=== PATIENT | female | born 1965 | race American Indian/Alaskan Native ===

== ENCOUNTER 2016-12-30 09:58 | Emergency (ER) | payer MEDICAID ==
[2016-12-30] MEDS ORDERED: MOTRIN PO ONE (11:11)
--- NOTE | 2016-12-30 11:48 | Emergency Department Report ---
Chief Complaint: Fever Stated Complaint: FLU-LIKE SYMPTOMS Time Seen by Provider: 12/30/16 11:38 - HPI History of Present Illness: Patient is a 51-year-old female with a history of HIV who presents to ED complaining of a quite mucus productive cough since Wednesday. Patient states she was recently in [place] for about 2 weeks early visiting her daughter. Patient's is to Wednesday she got back in town and has been having fevers/chills/ bodyaches since then. Patient states she had not vomited since this morning. She states she takes medications for blood pressure and has not been able to take a blood pressure medication today. Patient states she takes amlodipine 5mg this and appeared 20mg. Patient states she is taking [id number] flu symptom relief with no relief. Patient denies blurred vision/headache/diarrhea/constipation and shortness of breath/chest pain - ROS Review of Systems: As noted in HPI - Exam Vital Signs: Vital Signs 12/30/16 12/30/16 11:02 11:14 Temperature 102.3 F H Pulse Rate 114 H Respiratory 24 22 Rate Blood Pressure 180/117 O2 Sat by Pulse 99 Oximetry Physical Exam: GENERAL: Alert and oriented x3, no apparent distress, Normal Gait, atraumatic. MOUTH:Mouth is well hydrated and without lesions. Tonsils nonerythematous or swollen, Uvula midline, Tongue not elevated. Mucous membranes are moist. Posterior pharynx clear, no exudate or lesions. Patent airways. NECK: Supple. Non edematous, No carotid bruits. No lymphadenopathy or thyromegaly. LUNGS: Symetrical with respiration, No wheezing, no rales or crackles, CTAB. HEART: S1, S2 present, regular rate and rhythm without murmur, no rubs, no gallops. ABDOMEN: No organomegaly was noted,Positive bowel sounds, soft, and non- distended. . Nontender to palpation on all Quadrants, NO CVA tenderness. SKIN: Warm and dry, No lesions, No ulceration or induration present. MSE screening note: Focused history and physical exam performed. Due to findings the following was ordered: ED Medical Decision Making - Medical Decision Making 51-year-old female presents with URI symptoms and fever. Motrin given in triage area. Labs ordered. Chest x-ray ordered. Patient awaiting to be seen by a physician. His labs are normal and x-ray normal and fever reducing this patient can be seen in fast track ED Disposition for MSE Condition: Stable
[2016-12-30 12:01] LABS: Basophils % (Auto) 0.1 % (0.0-1.8); Hematocrit 33.7 % (30.3-42.9); Hemoglobin 11.1 gm/dl (10.1-14.3); Mean Corpuscular HGB Conc 33 % (30-34); Mean Corpuscular Hemoglobin 27 pg (28-32); Mean Corpuscular Volume 83 fl (79-97); Platelet Count 156 K/mm3 (140-440); Red Blood Count 4.08 M/mm3 (3.65-5.03); Red Cell Distribution Width 14.6 % (13.2-15.2); White Blood Count 6.1 K/mm3 (4.5-11.0)
[2016-12-30 12:24] LABS: Albumin 3.8 g/dL (3.9-5); Albumin/Globulin Ratio 0.7 %; Alkaline Phosphatase 67 units/L (35-129); Anion Gap 17 mmol/L; BUN/Creatinine Ratio 11.25; Bilirubin,Total 0.4 mg/dL (0.1-1.2); Blood Urea Nitrogen 9 mg/dL (7-17); Calcium 8.6 mg/dL (8.4-10.2); Carbon Dioxide 22 mmol/L (22-30); Glucose 101 mg/dL (65-100); Potassium 3.7 mmol/L (3.6-5.0); Sodium 137 mmol/L (137-145); Total Protein 9.4 g/dL (6.3-8.2)
[2016-12-30 12:29] LABS: Alanine Aminotransferase < 5 units/L (7-56)
[2016-12-30 13:38] LABS: Bilirubin,Urine NEG (Negative); Blood,Urine NEG (Negative); Ketones,Urine NEG (Negative); Leukocyte Esterase,Urine NEG (Negative); Mucus,Urine FEW /HPF; Nitrite,Urine NEG (Negative); Urobilinogen,Urine < 2.0 mg/dL (<2.0)
--- NOTE | 2016-12-30 14:00 | XRay Report ---
CHEST 2 VIEWS INDICATION: Productive cough. COMPARISON: None similar. FINDINGS: PA and lateral chest radiographs demonstrate normal cardiomediastinal silhouette and clear lungs. Few small bilateral hilar calcifications possible versus blood vessels on-end. Slight thoracic levocurvature, possibly positional versus scoliosis. CONCLUSION: No acute chest process with few incidental findings, as above. Thank you for the opportunity to participate in this patient's care.
[2016-12-30] MEDS ORDERED: NORMODYNE IV ONE (16:30)
[2016-12-30] MEDS ORDERED: TYLENOL PO ONE (16:32)
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
[2016-12-30] MEDS ORDERED: ZOFRAN IV ONE (16:35)
[2016-12-30] MEDS ORDERED: NACL 0.9% 1000 ML 1,000 ML ONE (16:46)
[2016-12-30] MEDS ORDERED: NORCO 5/325 PO ONE (16:47)
[2016-12-30] MEDS ORDERED: NACL 0.9% 1000 ML 1,000 ML IV ONE (16:47)
[2016-12-30] MEDS ORDERED: ATROVENT IH ONE (16:51)
[2016-12-30] MEDS ORDERED: PROVENTIL IH ONE (16:51)
[2016-12-30 18:55] VITALS: BP 136/76
== END 2016-12-30 18:55 | disposition home or self-care (01) ==
LOC: ED 09:58
DX: J09.X2 Influenza due to identified novel influenza A virus with other respiratory manifestations (principal); J45.21 Mild intermittent asthma with (acute) exacerbation; I10 Essential (primary) hypertension; K21.9 Gastro-esophageal reflux disease without esophagitis; G43.909 Migraine, unspecified, not intractable, without status migrainosus; F41.9 Anxiety disorder, unspecified; F32.9 Major depressive disorder, single episode, unspecified; F17.200 Nicotine dependence, unspecified, uncomplicated; Z90.710 Acquired absence of both cervix and uterus; Z98.890 Other specified postprocedural states
CPT/HCPCS: 36415; 71020; 80053; 81001; 84703; 85025; 87400; 94640; 96374; 96375; 99284; J2405; J2930; J7030

== ENCOUNTER 2017-10-16 12:43 | Emergency (ER) | payer MEDICAID, OTHER ==
[2017-10-16] MEDS ORDERED: TESSALON PERLES PO ONE ×2 (14:37→14:51)
[2017-10-16] MEDS ORDERED: TORADOL IM ONE (14:47)
[2017-10-16] MEDS ORDERED: PERCOCET 5/325 PO ONE (14:47)
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
[2017-10-16 16:52] VITALS: BP 135/87
== END 2017-10-16 17:00 | disposition home or self-care (01) ==
LOC: ED 12:43
DX: S16.1XXA Strain of muscle, fascia and tendon at neck level, initial encounter (principal); S46.911A Strain of unspecified muscle, fascia and tendon at shoulder and upper arm level, right arm, initial encounter; S80.02XA Contusion of left knee, initial encounter; S80.01XA Contusion of right knee, initial encounter; I10 Essential (primary) hypertension; K21.9 Gastro-esophageal reflux disease without esophagitis; M19.90 Unspecified osteoarthritis, unspecified site; G43.909 Migraine, unspecified, not intractable, without status migrainosus; J45.909 Unspecified asthma, uncomplicated; F41.9 Anxiety disorder, unspecified; F32.9 Major depressive disorder, single episode, unspecified; F43.10 Post-traumatic stress disorder, unspecified; Z90.710 Acquired absence of both cervix and uterus; Z90.89 Acquired absence of other organs; Z88.2 Allergy status to sulfonamides; Z88.0 Allergy status to penicillin; Z88.5 Allergy status to narcotic agent; Z91.013 Allergy to seafood; V89.2XXA Person injured in unspecified motor-vehicle accident, traffic, initial encounter; W22.10XA Striking against or struck by unspecified automobile airbag, initial encounter; Y93.89 Activity, other specified; Y99.8 Other external cause status; Y92.410 Unspecified street and highway as the place of occurrence of the external cause
CPT/HCPCS: 72125; 73030; 73562; 96372; 99284; J1885

== ENCOUNTER 2017-10-21 10:16 | Outpatient (CLI) | payer MEDICAID ==
--- NOTE | 2017-10-21 11:21 | XRay Report ---
BILATERAL KNEES, 3 VIEWS History: Pain. Findings: Normal bone mineralization. No acute osseous findings or joint pathology is identified. The soft tissues are within normal limits. Impression: Unremarkable bilateral knees.
--- NOTE | 2017-10-21 11:21 | XRay Report ---
LEFT ANKLE, 3 views: History: left ankle pain. Bone mineralization is normal. No acute osseous abnormality or joint pathology is identified. The soft tissues are unremarkable. IMPRESSION: Normal study.
--- NOTE | 2017-10-21 11:21 | XRay Report ---
LUMBOSACRAL SPINE, FIVE VIEWS: HISTORY: Low back pain. Views of the lumbosacral spine demonstrate normal bony alignment, vertebral height and interspace distances. Oblique views show patent foramina and normal apophyseal joint alignment. IMPRESSION: Lumbar spine within normal limits.
== END 2017-10-21 10:17 | disposition home or self-care (01) ==
LOC: XRAY 10:16
PROVIDERS: ATTEND Physical Medicine & Rehabilitation
DX: M54.5 Low back pain (principal); M25.561 Pain in right knee; M25.562 Pain in left knee; M25.572 Pain in left ankle and joints of left foot
CPT/HCPCS: 72110